=== PATIENT | male | born 1970 | race Two or more races ===

== ENCOUNTER → 2019-06-27 | Outpatient (CLI) | payer OTHER ==
--- NOTE | 2019-06-27 14:06 | RAD ---
Two-view study left knee Clinical indications: Left knee pain FINDINGS: No acute fracture or dislocation or lytic process is seen. No significant arthritic change is evident. No left knee joint effusion is seen sonographically. There is mild swelling of the prepatellar bursa. IMPRESSION: Mild soft tissue swelling of the prepatellar bursa which may represent bursitis. No significant osseous abnormality. Electronically signed by: Hi Dunn MD (06/27/2019 2:03 PM) [facility]
== END | disposition home or self-care (01) ==
LOC: PMG 09:08
PROVIDERS: ATTEND Physician Assistant
DX: M25.462 Effusion, left knee (principal)
CPT/HCPCS: 73560

== ENCOUNTER 2022-01-16 09:09 | Emergency (ER) | payer OTHER ==
[~2022-01-16] VITALS: Ht 172.7 cm; Wt 82.0 kg
[2022-01-16] MEDS ORDERED: PANT20TA58 PO (09:51)
--- NOTE | 2022-01-16 09:53 | PHYS DOC ---
Adult General Chief Complaint Chief Complaint: NAUSEA/VOMITING/DIARRHEA HPI HPI Patient is a 51-year-old male presenting with family member for nausea and epigastric issues. This is a subacute issue. Patient reportedly had numerous surgeries to right upper extremity for nerve related issues recently with most recent surgery being in January 07. He has been on appropriate medication for this taking oxycodone as scheduled for severe pain purposes only in addition to other remaining medications such as rosuvastatin and gabapentin. Patient reports that shortly after taking his prescribed oxycodone he would get nauseous to his stomach. Nonetheless, he finished all of this medication this past Wednesday and ever since has not been nauseous. Nonetheless, he also admits that he has had generalized epigastric discomfort and at times reflux and posterior oropharynx. This is worsened with certain meals and when laying down to go to bed after dinner. He has no history of gastric reflux, no alcohol abuse, no excessive caffeine use and has not been abusing any NSAIDs. Review of Systems Review of Systems Fourteen body systems of review of systems have been reviewed. See HPI for pertinent positives and negative responses, other cody all other systems are negative, non-pertinent or non-contributory Physical Exam Physical Exam Constitutional: Well developed, well nourished, no acute distress, non-toxic appearance. HENT: Normocephalic, atraumatic, bilateral external ears normal, oropharynx moist, no oral exudates, nose normal. Eyes: PERRLA, EOMI, conjunctiva normal, no discharge. Neck: Normal range of motion, no tenderness, supple, no stridor. Cardiovascular: Heart rate regular, sinus rhythm, no murmurs rubs or gallops Lungs & Thorax: Bilateral breath sounds clear to auscultation Abdomen: Bowel sounds normal, soft, no tenderness, no masses, no pulsatile masses. Nonsurgical abdomen, no peritoneal signs Skin: Warm, dry, no erythema, no rash. Back: No tenderness, no CVA tenderness. Extremities: No tenderness, no cyanosis, no clubbing, ROM intact, no edema. Right upper extremity in extensive sugar tong splint and subsequent Frank wrap well-appearing with adequate cap refill of all distal digits less than 3 seconds consistent with recent outpatient nerve procedure Neurologic: Alert and oriented X 3, grossly normal motor & sensory function, no focal deficits noted. Psychologic: Affect normal, judgement normal, mood normal. Current Patient Data Vital Signs Vital Signs Date Time Temp Pulse Resp B/P (MAP) Pulse Ox O2 Delivery O2 Flow Rate FiO2 01/16/22 19:53 98.2 77 18 127/87 (100) 96 Vital Signs Date Time Temp Pulse Resp B/P (MAP) Pulse Ox O2 Delivery O2 Flow Rate FiO2 01/16/22 19:53 98.2 77 18 127/87 (100) 96 EKG EKG [] Radiology/Procedures Radiology/Procedures [] Heart Score C/O Chest Pain: No Risk Factors: Risk Factors: DM, Current or recent (<one month) smoker, HTN, HLP, family history of CAD, obesity. Risk Scores: Risk Factors: DM, Current or recent (<one month) smoker, HTN, HLP, family history of CAD, obesity. Course & Med Decision Making Course & Med Decision Making ABCs unremarkable HPI physical exam obtained and nonconcerning for any emergent or surgical issues Disclose likely cause of his symptoms was strong opiate medication which patient has not used to prescribed at time of surgery. Symptoms improved after cessation of this approximately 48 hours ago Nonetheless, patient continuing to complain of classic GERD symptoms that exacerbate with certain food ingestions and laying down shortly after eating with epigastric pain and regurgitation. Joint decision to start PPI Disclose little indication for further diagnostic work-up in ER setting and/or need for hospitalization at present. Close outpatient follow-up with primary care physician and operating physician advised Colin Disclaimer Colin Disclaimer This electronic medical record was generated, in whole or in part, using a voice recognition dictation system. Departure Departure: Impression: Primary Impression: Epigastric pain Additional Impression: Nausea Disposition: 01 HOME / SELF CARE / HOMELESS Condition: STABLE Referrals: NON,STAFF (PCP) Patient Instructions: Gastroesophageal Reflux Disease, Adult Additional Instructions: You were seen for epigastric pain and nausea. Your vitals and physical examination were unremarkable. I disclosed likely cause of presenting symptoms was multifactorial, per history it sounds like you are suffering from gastroesophageal reflux disease in addition to adverse side effect from prescribed opiate medication for severe pain purpose. We are putting you on a medication to reduce your stomach acid levels. You should avoid alcohol, spicy foods, or NSAIDs as these can exacerbate your symptoms. You should follow up with the medicine clinic or your primary medical doctor for further evaluation and treatment. Return to the ED if you develop worsening pain, fever, black or bloody stools, or any other new or concerning symptoms. The medicine we started you on can take a few days to work fully. Scripts Pantoprazole Sodium (PROTONIX) 20 Mg Tablet. 1 TAB PO DAILY for GERD, #30 TAB Prov: RADHA MIDDLETON DO 01/16/22 Problem Qualifiers RADHA MIDDLETON DO Jan 16, 2022 09:53
[2022-01-16 19:53] VITALS: BP 127/87
== END 2022-01-16 10:45 | disposition home or self-care (01) ==
LOC: ER 09:09
DX: R10.13 Epigastric pain (principal); R11.0 Nausea
CPT/HCPCS: 99283